=== PATIENT | male | born 1990 | race Caucasian/White ===

== ENCOUNTER 2022-11-01 01:53 | Emergency (ER) | payer MEDICAID, OTHER ==
[~2022-11-01] VITALS: Ht 188 cm; Wt 124.7 kg
[2022-11-01 02:03] VITALS: BP 125/91
--- NOTE | 2022-11-01 02:11 | NUR ---
Patient taken to bed 5.
--- NOTE | 2022-11-01 02:15 | NUR ---
Dr. Plata examining patient.
--- NOTE | 2022-11-01 02:20 | NUR ---
COVID-19 swab colleted and sent to lab.
[2022-11-01] MEDS ORDERED: PIPERACILLIN/TAZOBACTAM 3.375 GM in DEXTROSE 5% 50 ML IV ONE (02:25)
[2022-11-01] MEDS ORDERED: KETOROLAC 30 MG/ML VIAL IVP ONE (02:25)
[2022-11-01] MEDS ORDERED: VANCOMYCIN 1,000 MG in DEXTROSE 5% 250 ML IV ONE (02:25)
[2022-11-01 02:41] LABS: BASOPHILS # (AUTO) 0.1 K/uL (0.00-0.22); BASOPHILS % (AUTO) 0.7 % (0.0-2.0); EOSINOPHILS % (AUTO) 0.4 % (0.0-4.0); HEMATOCRIT 43.8 % (36-52); HEMOGLOBIN 14.3 g/dL (12.0-18.0); LYMPHOCYTES % (AUTO) 14.7 % (20.5-51.1); MEAN CORPUSCULAR HEMOGLOBIN 28 pg (27-31); MEAN CORPUSCULAR HGB CONC 33 g/dL (33-37); MEAN CORPUSCULAR VOLUME 84.5 fL (80-94); MONOCYTES # (AUTO) 1.3 K/uL (0.8-1.0); MONOCYTES % (AUTO) 9.6 % (1.7-9.3); NEUTROPHILS % (AUTO) 74.6 % (42.2-75.2); PLATELET COUNT (AUTO) 279 K/uL (140-450); RED BLOOD CELL COUNT(AUTO) 5.18 MIL/uL (4.20-6.10); RED CELL DISTRIBUTION WIDTH 14.2 % (11.6-13.7); WHITE BLOOD COUNT (AUTO) 13.4 K/uL (4.8-10.8)
--- NOTE | 2022-11-01 02:46 | NUR ---
Patient taken to X-ray.
[2022-11-01] MEDS ORDERED: PIPERACILLIN/TAZOBACTAM 3.375 GM VIAL IV ONE (02:47)
[2022-11-01 02:55] LABS: ANION GAP 11.6 (8-16); CARBON DIOXIDE 31.8 mmol/L (21-32); CHLORIDE 100 mmol/L (98-107); GFR ARICAN-AMERICAN 111 mL/min (>90); GLUCOSE 104 mg/dL (74-106); POTASSIUM 3.4 mmol/L (3.5-5.1); SODIUM SERUM 140 mmol/L (136-145); UREA NITROGEN, BLOOD 14 mg/dL (7-18)
[2022-11-01 03:02] LABS: ALBUMIN 3.4 g/dL (3.4-5.0); ASPARTATE AMINOTRANSFERASE 19 U/L (15-37); TOTAL BILIRUBIN 0.5 mg/dL (0.0-1.0)
--- NOTE | 2022-11-01 03:06 | NUR ---
Ultrasound at bedside.
--- NOTE | 2022-11-01 03:24 | NUR ---
Ultrasound at bedside.
[2022-11-01] MEDS ORDERED: NACL 0.9% 1,000 ML IV ONE (03:45)
[2022-11-01] MEDS ORDERED: VANCOMYCIN 1,000 MG VIAL ONE (03:51)
[2022-11-01] MEDS ORDERED: LORazepam 2 MG/ML VIAL IVP PRN (03:55)
[2022-11-01] MEDS ORDERED: VANCOMYCIN PER PHARMACY MC PRN ×2 (03:55→04:45)
[2022-11-01] MEDS ORDERED: NACL 0.9% 1,000 ML IV SCH (03:55)
[2022-11-01] MEDS ORDERED: ACETAMINOPHEN 325 MG TAB PO PRN (03:55)
[2022-11-01] MEDS ORDERED: HYDROcodone/APAP 5/325 MG 1 TAB TAB PO PRN (03:55)
[2022-11-01] MEDS ORDERED: ONDANSETRON 4 MG/2 ML VIAL IVP PRN (03:55)
[2022-11-01 04:33] VITALS: BP 124/92
--- NOTE | 2022-11-01 04:33 | NUR ---
Patient does not wish to proceed with medical care recommended by [facility]. Patient given information related to possible complications, up to and including , which could occur as a result of leaving hospital at this time. Patient verbalizes understanding of risks involved leaving against medical advice. Patient has signed AMA form.
[2022-11-01] MEDS ORDERED: SULF-59 PO (04:34)
[2022-11-01] MEDS ORDERED: ACET-10509 PO (04:34)
[2022-11-01] MEDS ORDERED: IBUP-2213 PO (04:34)
[2022-11-01] MEDS ORDERED: CEPH-588 PO (04:34)
[2022-11-01] MEDS ORDERED: PIPERACILLIN/TAZOBACTAM 3.375 GM in DEXTROSE 5% 50 ML IV SCH (05:00)
--- NOTE | 2022-11-01 05:21 | NUR ---
Message left to notify physician of AMA status. Awaiting call back from on-call Dr. Crouch, admitting MD:Kimmie
--- NOTE | 2022-11-01 05:32 | NUR ---
on-call physician:Miko called back. advised of patient leaving AMA. Provider advised he will pass the message to Dr. Burks
[2022-11-01] MEDS ORDERED: ENOXAPARIN 40 MG/0.4 ML SYR SUBQ SCH (09:00)
== END 2022-11-01 03:55 | disposition home or self-care (01) ==
LOC: MED 01:53 → MTU 03:55 → UNDOADMIN 03:55 → UNDODISIN 04:33
DX: L03.113 Cellulitis of right upper limb (principal); R07.2 Precordial pain; R00.0 Tachycardia, unspecified; R03.0 Elevated blood-pressure reading, without diagnosis of hypertension; Z20.822 Contact with and (suspected) exposure to COVID-19; J45.909 Unspecified asthma, uncomplicated; F15.90 Other stimulant use, unspecified, uncomplicated; F11.90 Opioid use, unspecified, uncomplicated; Z98.890 Other specified postprocedural states
CPT/HCPCS: 36415; 71045; 71275; 73090; 80053; 83605; 83880; 84484; 85025; 85379; 85610; 85730; 87040; 87426; 93971; 96365; 96367; 96375; 99285; J1885; J2543; J3370; Q0092; Q9967; J7060